=== PATIENT | male | born 1950 | race Caucasian/White ===

== ENCOUNTER 2016-12-20 09:50 | Inpatient (IN) | payer MEDICARE, OTHER ==
[~2016-12-20] VITALS: Ht 172.7 cm; Wt 76.7 kg
[~2016-12-20 09:50] MED LIST: COUMADIN1 MG PO; NITROSTAT0.4 MG SL; PREDNISONE5 MG PO; PROVENTIL HFA6.7 GM INH; SPIRIVA18 MCG INH; SULFAMETHOXAZO1 EACH PO; SYMBICORT 80-46.9 GM INH; ZOCOR40 MG PO
[2016-12-20] MEDS ORDERED: PREDNISONE5 M1 PO (11:24)
[2016-12-20] MEDS ORDERED: MUCINEX600 MG PO (11:25)
[2016-12-20] MEDS ORDERED: SPIRIVA18 MCG INH (11:26)
[2016-12-20] MEDS ORDERED: PROVENTIL2.5 MG/3 M NEB (11:28)
[2016-12-20] MEDS ORDERED: PROVENTIL HFA6.7 GM INH (11:30)
[2016-12-20] MEDS ORDERED: XARELTO10 MG PO (11:33)
[2016-12-21] MEDS ORDERED: STIOLTO RESPIMAT4 GM INH (07:37)
[2016-12-21] MEDS ORDERED: ASMANEX220 MC1 INH (07:39)
[2016-12-21] MEDS ORDERED: THEOPHYLLINE400 MG PO (07:39)
[2016-12-23] MEDS ORDERED: ASMANEX220 MC1 INH (10:46)
[2016-12-23] MEDS ORDERED: PREDNISONE10 MG PO ×4 (10:48→10:51)
[2016-12-23] MEDS ORDERED: LEVAQUIN750 MG PO (10:56)
== END 2016-12-23 11:10 | disposition short-term general hospital (02) | DRG 190 ==
LOC: ER 09:50 → IP 12:00 → ER 12:00 → IP 12:00
PROVIDERS: ADMIT Family Medicine
PROC: 3E0F7GC Introduction of Other Therapeutic Substance into Respiratory Tract, Via Natural or Artificial Opening (ICD-10-PCS; principal; 2016-12-20)
DX: J44.0 Chronic obstructive pulmonary disease with (acute) lower respiratory infection (principal); J18.9 Pneumonia, unspecified organism; J44.1 Chronic obstructive pulmonary disease with (acute) exacerbation; I25.10 Atherosclerotic heart disease of native coronary artery without angina pectoris; I25.2 Old myocardial infarction; E78.5 Hyperlipidemia, unspecified; Z86.711 Personal history of pulmonary embolism; Z86.718 Personal history of other venous thrombosis and embolism; Z79.01 Long term (current) use of anticoagulants; Z87.891 Personal history of nicotine dependence; R00.0 Tachycardia, unspecified
CPT/HCPCS: J1956; J2543; J2930